=== PATIENT | female | born 2000 | race Caucasian/White ===

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

== ENCOUNTER 2022-05-28 12:04 | Emergency (ER) | payer MEDICAID | END 2022-05-28 12:34 | disposition home or self-care (01) | LOC: MW.ED 12:04 | DX: H66.93 Otitis media, unspecified, bilateral (principal); Z88.8 Allergy status to other drugs, medicaments and biological substances | CPT/HCPCS: 99282; 99283 ==

== ENCOUNTER 2022-07-26 15:36 | Emergency (ER) | payer MEDICAID | END 2022-07-26 16:57 | disposition left against medical advice (07) | LOC: MW.ED 15:36 | DX: Z53.21 Procedure and treatment not carried out due to patient leaving prior to being seen by health care provider (principal) ==

== ENCOUNTER 2023-12-31 08:02 | Emergency (ER) | payer BC, MEDICAID ==
[2023-12-31] MEDS: Sodium Chloride 0.9% 1,000 ML IV ONE (08:31)
[2023-12-31] MEDS: Famotidine 20 MG/2 ML SDV IVPUSH ONE (08:31)
[2023-12-31] MEDS: Ondansetron 4 MG/2 ML SDV IVPUSH ONE (08:31)
[2023-12-31 08:40] LABS: BASOPHILS ABSOLUTE AUTO 0.02 K/uL (0.00-0.20); BASOPHILS PERCENT AUTO 0.1 % (0.0-1.0); HEMATOCRIT 39.7 % (37.0-47.0); HEMOGLOBIN 13.5 g/dL (12.0-16.0); IMMATURE GRAN ABSOLUTE AUTO 0.16 K/uL (0.00-0.05); IMMATURE GRAN PERCENT AUTO 0.7 % (0.0-0.4); LYMPHOCYTES ABSOLUTE AUTO 0.79 K/uL (1.00-4.80); LYMPHOCYTES PERCENT AUTO 3.4 % (24.0-44.0); MEAN CORPUSCULAR HEMOGLOBIN 31.1 pg (28.0-32.0); MEAN CORPUSCULAR VOLUME 91.5 fL (83.0-99.0); MEAN PLATELET VOLUME 8.7 fL (9.4-12.3); MONOCYTES ABSOLUTE AUTO 1.28 K/uL (0.00-0.80); MONOCYTES PERCENT AUTO 5.5 % (0.0-8.0); NEUTROPHILS ABSOLUTE AUTO 21.14 K/uL (1.80-7.70); NEUTROPHILS PERCENT AUTO 90.3 % (41.0-71.0); PLATELET COUNT,PLT 211 K/uL (150-400); RED BLOOD CELL COUNT 4.34 M/uL (4.10-5.30); WHITE BLOOD CELL COUNT,WBC 23.39 K/uL (3.9-11.3)
[2023-12-31 08:45] LABS: BILIRUBIN,URINE NEGATIVE (NEGATIVE); COLOR,URINE YELLOW; GLUCOSE,URINE NEGATIVE (NEGATIVE); KETONES,URINE 40 mg/dL (NEGATIVE); LEUKOCYTE ESTERASE,URINE SMALL (NEGATIVE); NITRITE,URINE NEGATIVE (NEGATIVE); OCCULT BLOOD,URINE NEGATIVE (NEGATIVE); PROTEIN,URINE NEGATIVE (NEGATIVE)
[2023-12-31 08:48] LABS: APPEARANCE,URINE HAZY
[2023-12-31 08:53] LABS: BACTERIA,URINE 1+ (NEGATIVE); MUCUS,URINE LIGHT (NONE-MOD); RBC,URINE 0-2 (0-2/HPF); SQUAMOUS EPITHELIAL CELLS,UR FEW
[2023-12-31 09:00] LABS: A/G RATIO 1.3 (0.9-1.6); ALBUMIN 4.4 g/dL (3.4-5.0); BILIRUBIN TOTAL 1.9 mg/dL (0.2-1.0); CALCIUM 9.3 mg/dL (8.5-10.1); CREATININE 0.8 mg/dL (0.6-1.0); EST CRCL DRUG DOSING (CG) 78.14 mL/min; POTASSIUM,K 4.1 mmol/L (3.5-5.1); PROTEIN TOTAL,TP 7.8 g/dL (6.4-8.2)
== END 2023-12-31 09:28 | disposition home or self-care (01) ==
LOC: MW.ED 08:02
DX: R11.2 Nausea with vomiting, unspecified (principal); E80.6 Other disorders of bilirubin metabolism; Z90.89 Acquired absence of other organs; Z88.0 Allergy status to penicillin; Z88.8 Allergy status to other drugs, medicaments and biological substances; Z79.899 Other long term (current) drug therapy
CPT/HCPCS: 36415; 80053; 81001; 81025; 85025; 87086; 96361; 96374; 96375; 99284; J2405; J3490; J7030

== ENCOUNTER 2024-08-21 08:12 | Emergency (ER) | payer BC ==
[2024-08-21] MEDS: Fluorescein 1 MG Ophth Strip EYEBOTH ONE (09:11)
[2024-08-21] MEDS: methylPREDNISolone Sodium Succinate 40 MG/1 ML SDV IM ONE (09:12)
== END 2024-08-21 09:45 | disposition home or self-care (01) ==
LOC: MW.ED 08:12
DX: H02.844 Edema of left upper eyelid (principal); H02.841 Edema of right upper eyelid; Z88.0 Allergy status to penicillin; Z88.8 Allergy status to other drugs, medicaments and biological substances; W57.XXXA Bitten or stung by nonvenomous insect and other nonvenomous arthropods, initial encounter
CPT/HCPCS: 96372; 99283; A9270; J2919; 99282; J3490

== ENCOUNTER 2025-01-10 14:01 | Inpatient (IN) | payer BC ==
[2025-01-10] MEDS ORDERED: Sodium Chloride 0.9% 2.5 ML Syringe FLUSH PRN ×2 (16:10→23:24)
[2025-01-10] MEDS ORDERED: Sodium Chloride 0.9% 10 ML Syringe FLUSH PRN ×2 (16:10→23:24)
[2025-01-10 16:57] LABS: BASOPHILS ABSOLUTE AUTO 0.01 K/uL (0.00-0.20); BASOPHILS PERCENT AUTO 0.1 % (0.0-1.0); EOSINOPHILS ABSOLUTE AUTO 0.00 K/uL (0.00-0.45); EOSINOPHILS PERCENT AUTO 0.0 % (0.0-6.0); IMMATURE GRAN ABSOLUTE AUTO 0.06 K/uL (0.00-0.05); IMMATURE GRAN PERCENT AUTO 0.4 % (0.0-0.4); LYMPHOCYTES ABSOLUTE AUTO 0.90 K/uL (1.00-4.80); LYMPHOCYTES PERCENT AUTO 5.9 % (24.0-44.0); MEAN PLATELET VOLUME 8.8 fL (9.4-12.3); MONOCYTES ABSOLUTE AUTO 0.37 K/uL (0.00-0.80); MONOCYTES PERCENT AUTO 2.4 % (0.0-8.0); NEUTROPHILS ABSOLUTE AUTO 13.79 K/uL (1.80-7.70); NEUTROPHILS PERCENT AUTO 91.2 % (41.0-71.0); NRBC ABSOLUTE 0.00 K/uL (0.00-0.02); NRBC PERCENT 0.0 /100WBC (0.0-0.2); PLATELET COUNT,PLT 221 K/uL (150-400); RED BLOOD CELL COUNT 4.41 M/uL (4.10-5.30); WHITE BLOOD CELL COUNT,WBC 15.13 K/uL (3.9-11.3)
[2025-01-10 17:21] LABS: A/G RATIO 1.3 (0.9-1.6); ALANINE AMINOTRANSFERASE,ALT 17.0 IU/L (14-63); ASPARTATE AMNIOTRANSFERASE,AST 18.0 IU/L (15-37); BILIRUBIN TOTAL 0.9 mg/dL (0.2-1.0); BLOOD UREA NITROGEN,BUN 10.0 mg/dL (7.0-18.0); CARBON DIOXIDE,CO2 26.2 mmol/L (21.0-32.0); CHLORIDE,CL 105.0 mmol/L (98-107); CREATININE 0.9 mg/dL (0.6-1.0); EST CRCL DRUG DOSING (CG) 66.71 mL/min; GLUCOSE RANDOM 88.0 mg/dL (74-106); POTASSIUM,K 4.5 mmol/L (3.5-5.1); PROTEIN TOTAL,TP 8.0 g/dL (6.4-8.2); SODIUM,NA 141.0 mmol/L (136-145)
[2025-01-10 17:24] LABS: ESTIMATED GFR 93.0 mL/min (>60)
[2025-01-10 17:27] LABS: GLUCOSE,URINE NEGATIVE (NEGATIVE); OCCULT BLOOD,URINE TRACE-LYSED (NEGATIVE)
[2025-01-10 17:28] LABS: APPEARANCE,URINE HAZY
[2025-01-10 17:48] LABS: SQUAMOUS EPITHELIAL CELLS,UR MODERATE
[2025-01-10] MEDS: Iopamidol 755 Mg/ML 100 ML Bottle IVPUSH ONE (18:16)
[2025-01-10] MEDS: cefTRIAXone 2 GM in Water For Injection, Sterile 20 ML IVPUSH ONE (18:21)
[2025-01-10] MEDS: Lactated Ringers 1,000 ML IV ONE (18:21)
[2025-01-10] MEDS: Norepinephrine Bit/D5W Premix 4 MG/250 ML BAG IV SCH (20:30)
[2025-01-10] MEDS: Aluminum Hydroxide/Magnesium Hydroxide/Simethicone Susp 30 ML Cup PO ONE (21:20)
[2025-01-10] MEDS: Ondansetron 4 MG/2 ML SDV IVPUSH ONE (21:24)
[2025-01-10] MEDS ORDERED: Ondansetron 4 MG/2 ML SDV IVPUSH PRN (23:29)
[2025-01-11 05:41] LABS: MEAN PLATELET VOLUME 9.0 fL (9.4-12.3); NRBC ABSOLUTE 0.00 K/uL (0.00-0.02); NRBC PERCENT 0.0 /100WBC (0.0-0.2); PLATELET COUNT,PLT 243 K/uL (150-400); RED BLOOD CELL COUNT 3.68 M/uL (4.10-5.30); WHITE BLOOD CELL COUNT,WBC 10.84 K/uL (3.9-11.3)
[2025-01-11 06:11] LABS: BLOOD UREA NITROGEN,BUN 7.0 mg/dL (7.0-18.0); CARBON DIOXIDE,CO2 22.6 mmol/L (21.0-32.0); CHLORIDE,CL 110.0 mmol/L (98-107); CREATININE 0.7 mg/dL (0.6-1.0); EST CRCL DRUG DOSING (CG) 90.55 mL/min; GLUCOSE RANDOM 115.0 mg/dL (74-106); POTASSIUM,K 3.7 mmol/L (3.5-5.1); SODIUM,NA 143.0 mmol/L (136-145)
[2025-01-11 06:15] LABS: ESTIMATED GFR 125.0 mL/min (>60)
[2025-01-11] MEDS: cefTRIAXone 2 GM in Water For Injection, Sterile 20 ML IVPUSH SCH (16:14)
[2025-01-11] MEDS: Ketorolac 30 MG/ML SDV IVPUSH ONE (23:08)
[2025-01-12] MEDS: Ketorolac 30 MG/ML SDV ONE (08:43)
[2025-01-12] MEDS: Ketorolac 30 MG/ML SDV IVPUSH ONE (08:58)
== END 2025-01-12 14:03 | disposition home or self-care (01) | DRG 720 ==
LOC: MW.ED 14:01 → MW.ICU 21:18
PROVIDERS: ADMIT Internal Medicine; ATTEND Internal Medicine
PROC: 3E03329 Introduction of Other Anti-infective into Peripheral Vein, Percutaneous Approach (ICD-10-PCS; principal; 2025-01-10)
PROC: 3E033XZ Introduction of Vasopressor into Peripheral Vein, Percutaneous Approach (ICD-10-PCS; 2025-01-10)
DX: A41.9 Sepsis, unspecified organism (principal); N30.00 Acute cystitis without hematuria; I95.9 Hypotension, unspecified; F41.9 Anxiety disorder, unspecified; F32.A Depression, unspecified; F17.200 Nicotine dependence, unspecified, uncomplicated; E86.0 Dehydration; Z79.1 Long term (current) use of non-steroidal anti-inflammatories (NSAID); Z79.899 Other long term (current) drug therapy; Z79.891 Long term (current) use of opiate analgesic; Z98.890 Other specified postprocedural states
CPT/HCPCS: 36415; 74177; 74177-26; 76830; 76830-26; 80048; 80053; 81001; 81025; 83605; 83690; 83735; 84484; 85025; 85027; 87040; 87086; 93005; 96361; 96374; 96375; 99222; 99232; 99238; 99284; 99285-25; A4216; A9270-GY; J0696; J1885; J2405; J7030; J7120; Q9967